=== PATIENT | female | born 1990 | race Caucasian/White ===

== ENCOUNTER 2017-10-19 01:56 | Emergency (ER) | payer MEDICAID, SELFPAY ==
[2017-10-19 01:57] VITALS: BP 138/103; PULSE 111; RESP 18; TEMP 36.6; O2SAT 100; BMI 29.5
--- NOTE | 2017-10-19 02:42 | ED.DCSUM_ITS ---
- ER Visit Summary Date of Service: 10/19/17 Chief Complaint: [] Body rash History of Present Illness: The patient is a 27 F patient's had a body rash for the last month gradual onset continuous. Is diffuse. She was seen at [place] and told it may be scabies. She tried scabies treatments for 2 weeks. Did not change. She is using cortisone cream. She itches these spots open and they scab she has never had this before. It is diffuse. Physical Examination: [] Vital signs reviewed General: Well-nourished well-developed Head: Normocephalic atraumatic Eyes: Pupils equal round and reactive to light extraocular movements intact ENT: TMs clear no hemotympanum no trauma Neck: Nontender full range of motion Cardiovascular: Regular rate rhythm no murmurs normal S1-S2 Respiratory: No distress clear to auscultation bilaterally chest nontender Abdomen: Soft nontender nondistended normal bowel sounds no masses Back: Nontender no CVA tenderness Extremities: Nontender active range of motion ?4 extremities no trauma Skin: Has multiple open sores from scratching. She has intermittent small red lesions that she picks at. Neuro alert oriented cranial nerves II through XII intact normal strength sensation reflexes Test Results: [] Emergency Department Course and Treatment: [] Could be allergic related. Given prednisone and will take this for the next 10 days. I do not feel she has scabies. She had he tried treatment for this. Will use Benadryl as needed for the itch. Will be given Bactroban as she is scratching the spots open Treatment Plan: [] Disposition: [] Impression: [] Diffuse body rash This note was generated with [employer] dictation software. It may contain incorrect words, spelling, and punctuation that were not noted in review of the chart prior to signing ED Disposition - Plan for ED Patient: Chief Complaint: Rash Referrals: NOT,DEFINED [Primary Care Provider] -
--- NOTE | 2017-10-19 02:42 | ED.DEP ---
ED Disposition - Plan for ED Patient: Disposition: Home or Assisted Living Chief Complaint: Rash Instructions: ED Dermatitis Non Specific Rash Prescriptions: Prednisone [Deltasone] 60 mg PO DAILY #30 tab Mupirocin [Bactroban] 1 applic TOPICAL TID #1 tube Referrals: NOT,DEFINED [Primary Care Provider] - Anjel Crane MD [STAFF PHYSICIAN] -
[2017-10-19 02:48] VITALS: PULSE 85
== END 2017-10-19 02:57 | disposition home or self-care (01) ==
PROVIDERS: Emergency Provider Emergency Medicine
DX: R21 Rash and other nonspecific skin eruption (principal); Z72.0 Tobacco use
CPT/HCPCS: 99283